=== PATIENT | male | born 1950 | race Caucasian/White ===

== ENCOUNTER 2017-01-22 09:33 | Inpatient (IN) | payer MEDICARE, MEDICAID ==
[~2017-01-22] VITALS: Ht 177.8 cm; Wt 108.9 kg
[2017-01-22 10:07] VITALS: BP 125/77
[2017-01-22 10:16] LABS: APPEARANCE,URINE CLEAR; KETONES,URINE 1+ (NEGATIVE); LEUKOCYTE ESTERASE ,URINE 1+ (NEGATIVE); NITRITE,URINE NEGATIVE (NEGATIVE); PH,URINE 6 (4.5-8.0); PROTEIN,URINE NEGATIVE (NEGATIVE); UROBILINOGEN,URINE 1 MG/DL (0.0-1.0)
[2017-01-22 10:17] LABS: BASOPHILS % (AUTO) 1.1 % (0.0-2.0); EOSINOPHILS % (AUTO) 0.1 % (0.0-3.0); LYMPHOCYTES % (AUTO) 17.9 % (20.0-45.0); MEAN CORPUSCULAR HEMOGLOBIN 32.3 PG (27.0-31.0); MEAN CORPUSCULAR HGB CONC 34.5 G/DL (32.0-36.0); MEAN CORPUSCULAR VOLUME 94 FL (80-99); MEAN PLATELET VOLUME 6.3 FL (6.5-10.1); MONOCYTES % (AUTO) 8.6 % (1.0-10.0); NEUTROPHILS % (AUTO) 72.4 % (45.0-75.0); PLATELET COUNT 213 K/UL (150-450); RED BLOOD COUNT 3.91 M/UL (4.70-6.10); RED CELL DISTRIBUTION WIDTH 12.2 % (11.6-14.8); WHITE BLOOD COUNT 14.7 K/UL (4.8-10.8)
[2017-01-22 10:25] LABS: BACTERIA,URINE FEW /HPF; RBC,URINE 0-2 /HPF (0 - 0); SQUAMOUS EPITHELIAL CELL,UR OCCASIONAL /LPF (NONE/OCC); WBC,URINE 0-2 /HPF (0 - 0)
[2017-01-22 10:30] LABS: TROPONIN I < 0.30 ng/mL (<=0.30)
[2017-01-22 10:33] LABS: ALANINE AMINOTRANSFERASE 24 U/L (3-41); ALBUMIN/GLOBULIN RATIO 1.3 (1.0-2.7); ANION GAP 18 (5-15); ASPARTATE AMINO TRANSFERASE 35 U/L (5-40); CALCIUM 8.7 mg/dL (8.6-10.2); CARBON DIOXIDE 21 mEQ/L (20-30); CHLORIDE 98 mEQ/L (98-107); CREATININE 1.2 mg/dL (0.7-1.2); GLOMERULAR FILTRATION RATE > 60 mL/min (>60); HEMOLYSIS 19; POTASSIUM 3.8 mEQ/L (3.4-4.9); SODIUM 137 mEQ/L (135-145); TOTAL PROTEIN 5.7 g/dL (6.6-8.7)
[2017-01-22 10:36] LABS: REFLEX LACTIC ACID YES OR NO YES
--- NOTE | 2017-01-22 10:41 | Diagnostic Imaging Report ---
Indication: Altered mental status Technique: spiral acquisitions obtained through the brain. Angled axial and coronal 5 x 5 mm slices were reconstructed. No IV contrast utilized. Radiation dose was minimized using automated exposure control Total dose length product 1569 mGycm. CTDIvol(s) 70 x2 mGy Comparison: none FINDINGS: No acute hemorrhage or edema. No mass effect or midline shift. There is age-related enlargement of the ventricles and extra axial CSF spaces. There is periventricular deep white matter ischemic change. Normal bender-white differentiation. Is evidence of prior bilateral cataract surgery. Visualized sinuses are unremarkable. Intact calvarium. There is equivocal minimal left parietal scalp soft tissue swelling. IMPRESSION: Chronic and age-related changes. Negative for acute intracranial bleed or mass effect The CT scanner at [facility] is accredited by the [employer] and the scans are performed using protocols designed to limit radiation exposure to as low as reasonably achievable to attain images of sufficient resolution adequate for diagnostic evaluation
[2017-01-22 11:03] LABS: CKMB 2.6 ng/mL (< 6.7)
[2017-01-22] MEDS ORDERED: MILK OF MA400 MG/51 ORAL (11:13)
[2017-01-22] MEDS ORDERED: LOSARTAN POTASS50 MG ORAL (11:13)
[2017-01-22] MEDS ORDERED: BENZTROPINE ME0.5 MG PO (11:13)
[2017-01-22] MEDS ORDERED: ARICEPT10 MG ORAL (11:13)
[2017-01-22] MEDS ORDERED: VITAMIN D400 INTLU ORAL (11:13)
[2017-01-22] MEDS ORDERED: ADVAIR HFA 230-12 GM INH (11:13)
[2017-01-22] MEDS ORDERED: DEPAKOTE250 MG PO (11:13)
[2017-01-22] MEDS ORDERED: ARTIFICIAL TEAR15 ML LEFT EYE (11:13)
[2017-01-22] MEDS ORDERED: TRICOR48 MG ORAL (11:13)
[2017-01-22] MEDS ORDERED: ATIVAN1 MG ORAL (11:13)
[2017-01-22] MEDS ORDERED: SERTRALINE HCL25 MG ORAL (11:13)
[2017-01-22] MEDS ORDERED: FISH OIL 1,0001 EAC1 ORAL (11:13)
[2017-01-22] MEDS ORDERED: NS 1000ml 3,300 ML IVLG ONE (11:30)
--- NOTE | 2017-01-22 12:51 | Diagnostic Imaging Report ---
Indication: Chest pain Technique: One view of the chest Comparison: none Findings: Aorta is ectatic. Lungs and pleural space are clear. Heart is upper limits of normal in size. There is mild thoracic scoliotic deformity. Impression: No definite acute process
--- NOTE | 2017-01-22 13:13 | Emergency Room Report ---
History of Present Illness General Chief Complaint: Altered Mental Status Source: EMS Present Illness HPI 66-year-old male presents ED for evaluation. Per EMS patient was found sleeping in a park. patient appears confused. Patient has a medical bracelet on his wrist stating he lives at [facility]. EMS contacted the home and stated that patient has been missing for 2 days. Does have history of dementia. Upon arrival patient is able to say hello but does not provide any additional history. No signs of distress. No signs of trauma. No aggravating relieving factors. Denies any other associated symptoms Allergies: Coded Allergies: No Known Allergies (Unverified , 01/22/17) Patient History Past Medical History: HTN, dementia, psych hx Past Surgical History: none Pertinent Family History: none Social History: Denies: smoking, alcohol use, drug use Immunizations: UTD Reviewed Nursing Documentation: PMH: Agreed, PSxH: Agreed Nursing Documentation-PMH Hx Hypertension: Yes Hx Diabetes: Yes History Of Psychiatric Problem: Yes - Dementia; Schizophrenia Review of Systems All Other Systems: negative except mentioned in HPI Physical Exam Vital Signs Date Time Temp Pulse Resp B/P (MAP) Pulse Ox O2 Delivery O2 Flow Rate FiO2 01/22/17 09:24 93 18 142/92 96 Room Air Sp02 EP Interpretation: reviewed, normal General Appearance: no apparent distress, GCS 15, non-toxic, lethargic Head: normocephalic, atraumatic Eyes: bilateral eye normal inspection, bilateral eye PERRL ENT: hearing grossly normal, normal pharynx, no angioedema, normal voice Neck: full range of motion, supple/symm/no masses Respiratory: chest non-tender, lungs clear, normal breath sounds, speaking full sentences Cardiovascular #1: regular rate, rhythm, no edema Cardiovascular #2: 2+ carotid (R), 2+ carotid (L), 2+ radial (R), 2+ radial (L) , 2+ dorsalis pedis (R), 2+ dorsalis pedis (L) Gastrointestinal: normal bowel sounds, non tender, soft, non-distended, no guarding, no rebound Rectal: deferred Genitourinary: normal inspection, no CVA tenderness Musculoskeletal: back normal, gait/station normal, normal range of motion, non- tender Neurologic: motor strength/tone normal, sensory intact, other - disoriented Psychiatric: other - confused, disoriented Reflexes: 3+ bicep (R), 3+ bicep (L), 3+ tricep (R), 3+ tricep (L), 3+ knee (R) , 3+ knee (L) Skin: normal color, no rash, warm/dry, well hydrated Lymphatic: no adenopathy Medical Decision Making Diagnostic Impression: Primary Impression: Sepsis Qualified Codes: A41.9 - Sepsis, unspecified organism Additional Impression: Encephalopathy acute ER Course Hospital Course 66-year-old male presents with confusion and altered. [place]. Ran away from [facility] Differential diagnoses include: Pneumonia, UTI, sepsis, dehydration, [place]/ unstable angina Clinical course Patient placed on stretcher. 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 After initial history and physical, I ordered labs, IV fluids, EKG, chest x-ray, blood cultures, UA. Labs - electrolytes ok, noted leukocytosis, troponins negative, UA + bacteria, lactate elevated EKG - NSR, no acute changes intperreted by me CXR - no acute process CT Head unremarkable Abx given. given 30cc/kg fluid bolus. Case discussed with Dr Omalley and they agreed to admit patient to their service for further care and support I feel this is a highly complex case requiring extensive working including EKG/ Rhythm strip, Xray/CT/US, Blood/urine lab work, repeat exams while in ED, and administration of strong opiates/narcotics for pain control, admission to hospital or close patient follow up. Diagnosis - sepsis, encephalopathy Patient admitted to floor in serious condition Labs Test 01/22/17 09:50 01/22/17 10:00 01/22/17 11:20 White Blood Count 14.7 K/UL (4.8-10.8) Red Blood Count 3.91 M/UL (4.70-6.10) Hemoglobin 12.6 G/DL (14.2-18.0) Hematocrit 36.6 % (42.0-52.0) Mean Corpuscular Volume 94 FL (80-99) Mean Corpuscular Hemoglobin 32.3 PG (27.0-31.0) Mean Corpuscular Hemoglobin Concent 34.5 G/DL (32.0-36.0) Red Cell Distribution Width 12.2 % (11.6-14.8) Platelet Count 213 K/UL (150-450) Mean Platelet Volume 6.3 FL (6.5-10.1) Neutrophils (%) (Auto) 72.4 % (45.0-75.0) Lymphocytes (%) (Auto) 17.9 % (20.0-45.0) Monocytes (%) (Auto) 8.6 % (1.0-10.0) Eosinophils (%) (Auto) 0.1 % (0.0-3.0) Basophils (%) (Auto) 1.1 % (0.0-2.0) Sodium Level 137 mEQ/L (135-145) Potassium Level 3.8 mEQ/L (3.4-4.9) Chloride Level 98 mEQ/L (98-107) Carbon Dioxide Level 21 mEQ/L (20-30) Anion Gap 18 (5-15) Blood Urea Nitrogen 68 mg/dL (7-23) Creatinine 1.2 mg/dL (0.7-1.2) Estimat Glomerular Filtration Rate > 60 mL/min (>60) Glucose Level 129 mg/dL (74-106) Lactic Acid Level 2.60 mmol/L (0.66-2.22) 2.30 mmol/L (0.66-2.22) Calcium Level 8.7 mg/dL (8.6-10.2) Total Bilirubin 0.9 mg/dL (0.0-1.2) Aspartate Amino Transf (AST/SGOT) 35 U/L (5-40) Alanine Aminotransferase (ALT/SGPT) 24 U/L (3-41) Alkaline Phosphatase 34 U/L (40-129) Total Creatine Kinase 382 U/L (38-174) Creatine Kinase MB 2.6 ng/mL (< 6.7) Creatine Kinase MB Relative Index 0.6 Troponin I < 0.30 ng/mL (<=0.30) Pro-B-Type Natriuretic Peptide 72 pg/mL (0-125) Total Protein 5.7 g/dL (6.6-8.7) Albumin 3.3 g/dL (3.5-5.2) Globulin 2.4 g/dL Albumin/Globulin Ratio 1.3 (1.0-2.7) Urine Color Yellow Urine Appearance Clear Urine pH 6 (4.5-8.0) Urine Specific [place] 1.015 (1.005-1.035) Urine Protein Negative (NEGATIVE) Urine Glucose (UA) Negative (NEGATIVE) Urine Ketones 1+ (NEGATIVE) Urine Occult Blood Negative (NEGATIVE) Urine Nitrite Negative (NEGATIVE) Urine Bilirubin Negative (NEGATIVE) Urine Urobilinogen 1 MG/DL (0.0-1.0) Urine Leukocyte Esterase 1+ (NEGATIVE) Urine RBC 0-2 /HPF (0 - 0) Urine WBC 0-2 /HPF (0 - 0) Urine Squamous Epithelial Cells Occasional /LPF Urine Bacteria Few /HPF (NONE) EKG Diagnostic Results Rate: normal Rhythm: NSR ST Segments: no acute changes ASA given to the pt in ED: No Rhythm Strip Diag. Results EP Interpretation: yes Rhythm: NSR, no PVC's, no ectopy Chest X-Ray Diagnostic Results Chest X-Ray Diagnostic Results : Chest X-Ray Ordered: Yes Indication: Other - ams EP Interpretation: Yes Interpretation: no consolidation, no effusion, no pneumothorax, no acute cardiopulmonary disease Impression: No acute disease Interpreting ER Provider: Electronically signed by Brednon Stephens MD CT/MRI/US Diagnostic Results CT/MRI/US Diagnostic Results : Imaging Test Ordered: CT head Impression age-related changes. no acute process Last Vital Signs Date Time Temp Pulse Resp B/P (MAP) Pulse Ox O2 Delivery O2 Flow Rate FiO2 01/22/17 10:07 78 20 125/77 100 Room Air Status: improved Disposition: ADMITTED INPATIENT Condition: Serious Referrals: NON PHYSICIAN (PCP) BRENDON STEPHENS M.D. Jan 22, 2017 13:13
[2017-01-22 13:52] VITALS: BP 103/50
[2017-01-22 14:45] VITALS: BP 121/58
[2017-01-22] MEDS: cefTRIAXone 1 GM in D5W 55 ML IVPB SCH (17:43)
--- NOTE | 2017-01-22 17:55 | History & Physical ---
History and Physical History & Physicial 66-year-old male presents for evaluation for wondering and noted to have pneumonia. Per EMS patient was found sleeping in a park. Patient has dementia and is confused. Patient resides at [facility] and apparently had been missing for 2 days. Patient is a poor historian. No signs of distress. No signs of trauma. No aggravating relieving factors. Patient found to have possible pneumonia and elevated WBC and lactic acid level and being admitted for stabilization. Past Medical History: HTN, dementia, psychosis, elevated cholesterol Past Surgical History: none Pertinent Family History: none Social History: Denies: smoking, alcohol use, drug use; disabled; resided in a SNF Reviewed of systems: not reliable Physical exam WDWN NAD clear breath sounds bilaterally without rhonchi or wheeze [id number] without MRG NABS nontender no HSM no CCE nonfocal Labs Test 01/22/17 09:50 01/22/17 10:00 01/22/17 11:20 White Blood Count 14.7 K/UL (4.8-10.8) Red Blood Count 3.91 M/UL (4.70-6.10) Hemoglobin 12.6 G/DL (14.2-18.0) Hematocrit 36.6 % (42.0-52.0) Mean Corpuscular Volume 94 FL (80-99) Mean Corpuscular Hemoglobin 32.3 PG (27.0-31.0) Mean Corpuscular Hemoglobin Concent 34.5 G/DL (32.0-36.0) Red Cell Distribution Width 12.2 % (11.6-14.8) Platelet Count 213 K/UL (150-450) Mean Platelet Volume 6.3 FL (6.5-10.1) Neutrophils (%) (Auto) 72.4 % (45.0-75.0) Lymphocytes (%) (Auto) 17.9 % (20.0-45.0) Monocytes (%) (Auto) 8.6 % (1.0-10.0) Eosinophils (%) (Auto) 0.1 % (0.0-3.0) Basophils (%) (Auto) 1.1 % (0.0-2.0) Sodium Level 137 mEQ/L (135-145) Potassium Level 3.8 mEQ/L (3.4-4.9) Chloride Level 98 mEQ/L (98-107) Carbon Dioxide Level 21 mEQ/L (20-30) Anion Gap 18 (5-15) Blood Urea Nitrogen 68 mg/dL (7-23) Creatinine 1.2 mg/dL (0.7-1.2) Estimat Glomerular Filtration Rate > 60 mL/min (>60) Glucose Level 129 mg/dL (74-106) Lactic Acid Level 2.60 mmol/L (0.66-2.22) 2.30 mmol/L (0.66-2.22) Calcium Level 8.7 mg/dL (8.6-10.2) Total Bilirubin 0.9 mg/dL (0.0-1.2) Aspartate Amino Transf (AST/SGOT) 35 U/L (5-40) Alanine Aminotransferase (ALT/SGPT) 24 U/L (3-41) Alkaline Phosphatase 34 U/L (40-129) Total Creatine Kinase 382 U/L (38-174) Creatine Kinase MB 2.6 ng/mL (< 6.7) Creatine Kinase MB Relative Index 0.6 Troponin I < 0.30 ng/mL (<=0.30) Pro-B-Type Natriuretic Peptide 72 pg/mL (0-125) Total Protein 5.7 g/dL (6.6-8.7) Albumin 3.3 g/dL (3.5-5.2) Globulin 2.4 g/dL Albumin/Globulin Ratio 1.3 (1.0-2.7) Urine Color Yellow Urine Appearance Clear Urine pH 6 (4.5-8.0) Urine Specific [place] 1.015 (1.005-1.035) Urine Protein Negative (NEGATIVE) Urine Glucose (UA) Negative (NEGATIVE) Urine Ketones 1+ (NEGATIVE) Urine Occult Blood Negative (NEGATIVE) Urine Nitrite Negative (NEGATIVE) Urine Bilirubin Negative (NEGATIVE) Urine Urobilinogen 1 MG/DL (0.0-1.0) Urine Leukocyte Esterase 1+ (NEGATIVE) Urine RBC 0-2 /HPF (0 - 0) Urine WBC 0-2 /HPF (0 - 0) Urine Squamous Epithelial Cells Occasional /LPF Urine Bacteria Few /HPF (NONE) IMPRESSION acute on chronic encephalopathy possible pneumonia leukocytosis possible sepsis mild protein calorie malnutrition psychosis dementia PLAN IV antibiotics respiratory care oxygen follow up exam resume SNF meds PT evaluation impression, plan, and exam edited and reviewed in detail care discussed with RN GALILEO ECHEVERRIA Jan 22, 2017 17:55
[2017-01-22] MEDS ORDERED: Milk of Magnesia 30ml Ud ORAL PRN (18:00)
[2017-01-22] MEDS: Artificial Tears 1.4% Op Soln LEFT EYE SCH (18:18)
[2017-01-22] MEDS ORDERED: DuoNeb 0.5-3(2.5)mg/3ml neb HHN PRN (19:00)
[2017-01-22] MEDS ORDERED: DuoNeb 0.5-3(2.5)mg/3ml neb HHN SCH (19:00)
[2017-01-22 20:00] VITALS: BP 113/65
[2017-01-22] MEDS: Depakote 500mg tab ORAL SCH (20:42)
[2017-01-22] MEDS: Heparin 5000 units/ml inj SUBQ SCH (20:42)
[2017-01-23] VITALS: BP 119/74
[2017-01-23] MEDS: Zolpidem 5mg tab ORAL PRN ×2 (01:39→22:00)
[2017-01-23 04:00] VITALS: BP 130/72
[2017-01-23 06:52] LABS: BASOPHILS % (AUTO) 1.9 % (0.0-2.0); EOSINOPHILS % (AUTO) 0.4 % (0.0-3.0); LYMPHOCYTES % (AUTO) 26.1 % (20.0-45.0); MEAN CORPUSCULAR HEMOGLOBIN 32.1 PG (27.0-31.0); MEAN CORPUSCULAR HGB CONC 34.2 G/DL (32.0-36.0); MEAN CORPUSCULAR VOLUME 94 FL (80-99); MEAN PLATELET VOLUME 6.3 FL (6.5-10.1); MONOCYTES % (AUTO) 10.6 % (1.0-10.0); NEUTROPHILS % (AUTO) 61.1 % (45.0-75.0); PLATELET COUNT 193 K/UL (150-450); RED BLOOD COUNT 3.55 M/UL (4.70-6.10); RED CELL DISTRIBUTION WIDTH 12.4 % (11.6-14.8); WHITE BLOOD COUNT 10.9 K/UL (4.8-10.8)
[2017-01-23 07:07] LABS: ANION GAP 14 (5-15); CALCIUM 8.8 mg/dL (8.6-10.2); CARBON DIOXIDE 23 mEQ/L (20-30); CHLORIDE 103 mEQ/L (98-107); CREATININE 1.1 mg/dL (0.7-1.2); GLOMERULAR FILTRATION RATE > 60 mL/min (>60); HEMOLYSIS 4; POTASSIUM 4.1 mEQ/L (3.4-4.9); SODIUM 140 mEQ/L (135-145)
[2017-01-23 08:00] VITALS: BP 136/77
[2017-01-23] MEDS: Artificial Tears 1.4% Op Soln LEFT EYE SCH ×2 (09:42→17:28)
[2017-01-23] MEDS: Donepezil 10mg tab ORAL SCH (09:43)
[2017-01-23] MEDS: Sertraline 50mg tab ORAL SCH (09:43)
[2017-01-23] MEDS: Losartan 50mg tab ORAL SCH (09:43)
[2017-01-23] MEDS: Depakote 500mg tab ORAL SCH ×2 (09:44→21:49)
[2017-01-23] MEDS: Heparin 5000 units/ml inj SUBQ SCH ×2 (09:45→21:50)
[2017-01-23 12:35] VITALS: BP 119/70
--- NOTE | 2017-01-23 12:42 | General Progress Note ---
Assessment/Plan Assessment/Plan IMPRESSION acute on chronic encephalopathy possible pneumonia leukocytosis possible sepsis bactermia mild protein calorie malnutrition psychosis dementia PLAN IV antibiotics added vanco ID evaluation respiratory care oxygen follow up exam resume SNF meds PT evaluation dc to snf when stable impression, plan, and exam edited and reviewed in detail care discussed with RN Subjective Allergies: Coded Allergies: No Known Allergies (Unverified , 01/22/17) Subjective confused bcx positive off oxygen care noted Objective Last 24 Hour Vital Signs Date Time Temp Pulse Resp B/P (MAP) Pulse Ox O2 Delivery O2 Flow Rate FiO2 01/23/17 12:35 96.3 58 20 119/70 95 Room Air 01/23/17 09:43 136/77 01/23/17 08:00 97.9 58 18 136/77 100 Room Air 01/23/17 07:50 60 16 Room Air 21 01/23/17 04:00 97.2 65 18 130/72 97 Nasal Cannula 2.0 01/23/17 00:00 97.7 63 18 119/74 97 Nasal Cannula 2.0 01/22/17 20:00 97.7 72 18 113/65 96 Nasal Cannula 2.0 01/22/17 19:39 69 18 98 Nasal Cannula 2.0 28 01/22/17 19:28 67 16 94 Nasal Cannula 2.0 28 01/22/17 19:28 28 01/22/17 14:45 97.6 65 20 121/58 98 Room Air 01/22/17 13:53 64 21 103/50 100 Room Air 01/22/17 13:52 98.0 64 21 103/50 100 Room Air Intake and Output 01/23/17 01/24/17 19:00 07:00 Intake Total 240 ml Output Total 240 ml Balance 0 ml Intake Oral 240 ml Output Urine Total 240 ml Laboratory Tests 01/23/17 05:15: White Blood Count 10.9H, Red Blood Count 3.55L, Hemoglobin 11.4L, Hematocrit 33.3L, Mean Corpuscular Volume 94, Mean Corpuscular Hemoglobin 32.1H, Mean Corpuscular Hemoglobin Concent 34.2, Red Cell Distribution Width 12.4, Platelet Count 193, Mean Platelet Volume 6.3L, Neutrophils (%) (Auto) 61.1, Lymphocytes ( %) (Auto) 26.1, Monocytes (%) (Auto) 10.6H, Eosinophils (%) (Auto) 0.4, Basophils (%) (Auto) 1.9, Sodium Level 140, Potassium Level 4.1, Chloride Level 103, Carbon Dioxide Level 23, Anion Gap 14, Blood Urea Nitrogen 46H, Creatinine 1.1, Estimat Glomerular Filtration Rate > 60, Glucose Level 93, Calcium Level 8.8 Height (Feet): 5 Height (Inches): 10.00 Weight (Pounds): 240 Objective WDWN NAD clear breath sounds bilaterally without rhonchi or wheeze [id number] without MRG NABS nontender no HSM no CCE nonfocal confused obese GALILEO ECHEVERRIA Jan 23, 2017 12:42
[2017-01-23 16:00] VITALS: BP 122/65
[2017-01-23] MEDS: cefTRIAXone 1 GM in D5W 55 ML IVPB SCH (17:28)
[2017-01-23 20:00] VITALS: BP 132/75
[2017-01-24] VITALS: BP 105/57
[2017-01-24 04:00] VITALS: BP 123/73
[2017-01-24 08:00] VITALS: BP 125/79
[2017-01-24] MEDS: Artificial Tears 1.4% Op Soln LEFT EYE SCH (08:50)
[2017-01-24] MEDS: Donepezil 10mg tab ORAL SCH (08:51)
[2017-01-24] MEDS: Depakote 500mg tab ORAL SCH (08:51)
[2017-01-24] MEDS: Losartan 50mg tab ORAL SCH ×2 (08:51→09:00)
[2017-01-24 09:00] VITALS: BP 114/77
[2017-01-24] MEDS: Sertraline 50mg tab ORAL SCH (09:05)
[2017-01-24] MEDS: Heparin 5000 units/ml inj SUBQ SCH (09:06)
--- NOTE | 2017-01-24 10:44 | General Progress Note ---
Assessment/Plan Assessment/Plan IMPRESSION acute on chronic encephalopathy possible pneumonia leukocytosis possible sepsis bacteremia mild protein calorie malnutrition psychosis dementia PLAN IV antibiotics now on vanco ID evaluation for clearance respiratory care oxygen follow up exam resume SNF meds PT evaluation dc to snf today if cleared by ID impression, plan, and exam edited and reviewed in detail care discussed with RN Subjective Allergies: Coded Allergies: No Known Allergies (Unverified , 01/22/17) Subjective confused bcx positive ?contaminant off oxygen care noted Objective Last 24 Hour Vital Signs Date Time Temp Pulse Resp B/P (MAP) Pulse Ox O2 Delivery O2 Flow Rate FiO2 01/24/17 09:00 59 114/77 01/24/17 09:00 114/77 01/24/17 08:00 97.5 63 20 125/79 96 Room Air 01/24/17 04:00 97.7 57 20 123/73 100 Room Air 01/24/17 00:00 97.7 56 19 105/57 99 Room Air 01/23/17 20:00 98.1 60 20 132/75 98 Room Air 01/23/17 19:17 62 17 Room Air 21 01/23/17 16:00 98.2 57 18 122/65 99 Room Air 01/23/17 12:35 96.3 58 20 119/70 95 Room Air Height (Feet): 5 Height (Inches): 10.00 Weight (Pounds): 240 Objective WDWN NAD clear breath sounds bilaterally without rhonchi or wheeze [id number] without MRG NABS nontender no HSM no CCE nonfocal confused obese GALILEO ECHEVERRIA Jan 24, 2017 10:44
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
[2017-01-24 12:30] VITALS: BP 111/80
[2017-01-24] MEDS ORDERED: NS 275ml ONE (15:36)
[2017-01-24] MEDS ORDERED: D5 1/2NS 1000ml IV ONE (15:36)
--- NOTE | 2017-01-24 21:00 | Consultation ---
DATE OF CONSULTATION: 01/24/2017 INFECTIOUS DISEASE CONSULTATION This consult is for coverage of Dr. Escalante. PRIMARY ATTENDING PHYSICIAN: Wyatt Omalley M.D. REASON FOR CONSULTATION: Pneumonia. HISTORY OF PRESENT ILLNESS: The patient is a 66-year-old white male, who is a half-way resident, was missing from half-way for two days. [place] was [place] the park with altered mental status. He has leukocytosis and lactic acidosis at the time of admission. PAST MEDICAL HISTORY: Significant for dementia, psychosis, and hypertension. MEDICATIONS: Protonix, Aricept, Cozaar, Zoloft, heparin, Depakote, Ambien, artificial tears, DuoNeb inhaler, ceftriaxone, magnesium hydroxide, Tylenol, and Mylanta. ALLERGIES: No known drug allergies. REVIEW OF SYSTEMS: The patient denies any pain. Not a good source of history. PHYSICAL EXAMINATION: HEAD AND NECK: Bilateral conjunctival erythema. A piece of lower eyelid in the left side is missing like he had surgery there. Has telangiectasia of superficial vessels in the nose and face. HEART: Regular. LUNGS: Clear. ABDOMEN: Soft and nontender. EXTREMITIES: No edema. SKIN: Has erythema and diaper rash in the genital area. NEUROLOGIC: Awake, alert, obey simple commands. Has tremor of hands. LABORATORY DATA: WBC is 10.9 coming from 14.7 at the time of admission, hemoglobin 7.4, hematocrit 33.6, and platelets is 193,000. Lactic acid latest one on 01/22/2017 was 2.3. Sodium 140, potassium 4.1, chloride 103, bicarbonate 23, BUN 46, creatinine 1.1, and glucose 93. UA showed WBC 0 to 2. Blood culture x1 was positive for coagulase-negative staph. Other cultures negative. MRSA screen was negative. Chest x-ray showed clear lungs. CT scan of head showed chronic changes. IMPRESSION: Leukocytosis with lactic acidosis, may have early sepsis, may have bronchitis, advanced dementia, psychosis, and history of hypertension. RECOMMENDATIONS: We will continue with ceftriaxone. May switch to oral antibiotic at the time of his discharge. At the end of my exam, I thank Dr. Omalley for involving me in the care of this patient. Tam Davila M.D. DR: BARON JOB#: [id number] CC:
--- NOTE | 2017-01-25 16:52 | Cardiology Report ---
APPROVED REPORT EKG Measurement Heart [id number] Normal sinus rhythm Normal ECG
--- NOTE | 2017-01-26 12:45 | Discharge Summary ---
Discharge Summary Hospital Course Date of Admission Jan 22, 2017 at 10:53 Date of Discharge Jan 24, 2017 at 15:37 Admitting Diagnosis ams/weakness HPI Dony Kent is a 66 year old male who was admitted on Jan 22, 2017 at 10:53 for Altered Mental Status/Weakness Hospital Course [id number] Discharge Discharge Disposition Patient was discharged to [facility] Discharge Diagnoses: Nel Mckeon NP Jan 26, 2017 12:45
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
== END 2017-01-24 15:37 | DRG 871 ==
LOC: EDBD 09:33 → EMR 10:27 → 4E 10:53 → EDBEDREQ 13:39
DX: A41.9 Sepsis, unspecified organism (principal); J18.9 Pneumonia, unspecified organism; G93.40 Encephalopathy, unspecified; L89.151 Pressure ulcer of sacral region, stage 1; F03.90 Unspecified dementia, unspecified severity, without behavioral disturbance, psychotic disturbance, mood disturbance, and anxiety; E44.1 Mild protein-calorie malnutrition; F29 Unspecified psychosis not due to a substance or known physiological condition
CPT/HCPCS: 36415; 70450; 71010; 80048; 80053; 81003; 82550; 82553; 83605; 83880; 84484; 85025; 87040; 87081; 87181; 93005; 94640; 94664; 99285; J7620